=== PATIENT | female | born 1955 | race Caucasian/White ===

== ENCOUNTER 2023-07-04 00:33 | Emergency (ER) | payer OTHER ==
[~2023-07-04] VITALS: Ht 172.7 cm; Wt 68.9 kg
[2023-07-04 00:39] VITALS: BP_SYST 149; PULSE 102; RESP 19; TEMP 98; O2SAT 98
[2023-07-04] MEDS ORDERED: ASPIRIN 325 MG TABLET PO ONE (01:00)
[2023-07-04] MEDS ORDERED: NITROGLYCERIN 1 INCH (GM) OINT. ONE (01:15)
[2023-07-04] MEDS ORDERED: MORPHINE 4 MG INJ. 4 MG/ML VIAL ONE (01:30)
[2023-07-04 01:43] LABS: BASOPHILS # (AUTO) 0.1 K/uL (0.0-0.2); CALCIUM 9.3 mg/dL (8.4-11.0); CREATININE 0.89 mg/dL (0.55-1.30); EOSINOPHILS # (AUTO) 0.2 K/uL (0.0-0.4); HEMOGLOBIN 14.1 g/dL (12.0-16.0); POTASSIUM 3.6 mmol/L (3.5-5.1); WHITE BLOOD COUNT (AUTO) 5.9 K/uL (4.8-10.8)
[2023-07-04 01:48] LABS: ALBUMIN 3.5 g/dL (3.4-4.8); TOTAL BILIRUBIN 0.6 mg/dL (0.0-1.0); TOTAL PROTEIN, SERUM 6.7 g/dL (6.4-8.3)
[2023-07-04 02:03] LABS: BASOPHILS % (AUTO) 1.3 % (0.0-2.0); EOSINOPHILS % (AUTO) 3.4 % (0.0-4.0); HEMATOCRIT 42.6 % (36-48); INR 0.9 (0.8-1.2); LYMPHOCYTES # (AUTO) 2.8 K/uL (1.0-5.5); LYMPHOCYTES % (AUTO) 47.4 % (20.5-51.5); MEAN CORPUSCULAR HEMOGLOBIN 28 pg (27-31); MEAN CORPUSCULAR HGB CONC 33 % (32-36); MEAN CORPUSCULAR VOLUME 85 fL (79.0-98.0); MONOCYTES # (AUTO) 0.5 K/uL (0.0-1.0); MONOCYTES % (AUTO) 7.6 % (1.7-9.3); NEUTROPHILS # (AUTO) 2.4 K/uL (1.8-7.7); NEUTROPHILS % (AUTO) 40.3 % (40.0-70.0); PLATELET COUNT (AUTO) 203 K/uL (130-430); PROTHROMBIN TIME 9.5 SECS (9.5-12.5); RED CELL DISTRIBUTION WIDTH 14.1 % (9.0-15.0)
[2023-07-04 03:38] VITALS: BP_SYST 122; PULSE 75; RESP 22; TEMP 98.6; O2SAT 98
[2023-07-04] MEDS ORDERED: NITROGLYCERIN 1 INCH (GM) OINT. TP ONE (12:51)
[2023-07-04] MEDS ORDERED: MORPHINE 4 MG INJ. 4 MG/ML VIAL IVP ONE (12:51)
== END 2023-07-04 03:38 | disposition home or self-care (01) ==
LOC: SED 00:33
DX: R07.9 Chest pain, unspecified (principal); I10 Essential (primary) hypertension; Z79.899 Other long term (current) drug therapy
CPT/HCPCS: 99285; 96374; 71045; 80053; 83880; 85025; 85379; 85610; 85730; 84484; 36415; 93005; J2270